=== PATIENT | female | born 1975 | race Caucasian/White ===

== ENCOUNTER 2017-07-23 12:43 | Outpatient (CLI) | payer OTHER | END 2017-07-23 12:44 | disposition home or self-care (01) | LOC: BICMAMMO 12:43 | PROVIDERS: ATTEND Family Medicine | DX: N64.89 Other specified disorders of breast (principal) | CPT/HCPCS: 77066; G0279 ==

== ENCOUNTER 2018-09-13 10:35 | Outpatient (CLI) | payer OTHER ==
--- NOTE | 2018-09-13 11:57 | ULT ---
Pelvic sonogram transabdominal and transvaginal imaging with duplex evaluation HISTORY: Chronic pelvic pain. FINDINGS: Urinary bladder incompletely distended. No focal abnormalities. Uterus has a heterogeneous echotexture and measures up to 10.2 cm. Small nabothian cysts of the cervix. Endometrium is 0.4 cm. No free fluid. Right ovary and left ovary each measuring 3.0 cm greatest diameter small follicles with good color an d spectral Doppler flow. IMPRESSION: Normal pelvic sonogram.
== END 2018-09-13 10:36 | disposition home or self-care (01) ==
LOC: SCSULT 10:35
PROVIDERS: ATTEND Student in an Organized Health Care Education/Training Program
DX: R10.2 Pelvic and perineal pain (principal); G89.29 Other chronic pain
CPT/HCPCS: 76856